=== PATIENT | female | born 1995 | race Two or more races ===

== ENCOUNTER 2021-03-02 14:13 | Emergency (ER) | payer OTHER ==
[~2021-03-02] VITALS: Ht 149.9 cm; Wt 44.0 kg
[~2021-03-02 14:13] MED LIST: AMOX1TAB5; FAMVIR500 MG PO; ZYRTEC10 MG PO
[2021-03-02] MEDS ORDERED: CYCLOBENZAPRINE10 MG PO (16:52)
[2021-03-02] MEDS ORDERED: BISOPROLOL FUMAR5 MG (16:54)
[2021-03-02] MEDS ORDERED: ZETIA10 MG (16:54)
[2021-03-02] MEDS ORDERED: OMEGA-31000 MG (16:54)
[2021-03-02] MEDS ORDERED: GLUCOPHAGE XR500 MG (16:54)
== END 2021-03-02 21:42 | disposition home or self-care (01) ==
LOC: ER 14:13
DX: O26.891 Other specified pregnancy related conditions, first trimester (principal); R10.12 Left upper quadrant pain; M94.0 Chondrocostal junction syndrome [Tietze]; Z34.01 Encounter for supervision of normal first pregnancy, first trimester